=== PATIENT | male | born 1930 | race Caucasian/White ===

== ENCOUNTER 2022-03-01 12:44 | Emergency (ER) | payer MEDICARE, OTHER ==
[~2022-03-01] VITALS: Ht 167.6 cm; Wt 77.1 kg
[2022-03-01] MEDS ORDERED: IV NS 0.9% 500 ML BAG IV ONE (13:00)
--- NOTE | 2022-03-01 13:04 | NUR ---
PT TAKEN TO RADIOLOGY FOR CT
--- NOTE | 2022-03-01 13:20 | NUR ---
PT RETURNED FROM RADIOLOGY
--- NOTE | 2022-03-01 13:30 | NUR ---
IV LINE ESTABLISHED ON LAC #20, BLOOD DRAWN AND COLLECTED BY PHLEB AT BEDSIDE
--- NOTE | 2022-03-01 13:43 | NUR ---
TECH AT BEDSIDE FOR EKG
[2022-03-01 13:46] LABS: BASOPHILS % (AUTO) 0.5 % (0.0-2.0); EOSINOPHILS % (AUTO) 0.1 % (0.0-6.0); HEMATOCRIT 41 % (39-51); HEMOGLOBIN 13.8 g/dL (13.5-17.5); LYMPHOCYTES # (AUTO) 0.5 K/uL (0.8-4.8); LYMPHOCYTES % (AUTO) 8.7 % (20.0-44.0); MEAN CORPUSCULAR HGB CONC 33 g/dl (31.0-36.0); MEAN CORPUSCULAR VOLUME 87 fL (80-96); MONOCYTES # (AUTO) 0.8 K/uL (0.1-1.30); MONOCYTES % (AUTO) 12.4 % (2.0-12.0); NEUTROPHILS # (AUTO) 4.9 K/uL (1.8-8.9); NEUTROPHILS % (AUTO) 78.3 % (43.0-81.0); PLATELET COUNT (AUTO) 231 K/uL (150-450); RED BLOOD CELL COUNT(AUTO) 4.76 MIL/uL (4.5-6.0); WHITE BLOOD COUNT (AUTO) 6.3 K/uL (4.3-11.0)
[2022-03-01 14:33] LABS: CALCIUM, SERUM 8.9 mg/dL (8.5-10.1); CARBON DIOXIDE 30 mmol/L (21-32); CHLORIDE 103 mmol/L (98-107); CREATININE 1.4 mg/dL (0.6-1.3); GLUCOSE 136 mg/dL (74-106); POTASSIUM 4.2 mmol/L (3.5-5.1); SODIUM SERUM 139 mmol/L (136-145); UREA NITROGEN, BLOOD 16 mg/dL (7-18)
--- NOTE | 2022-03-01 15:36 | NUR ---
DALLIN RODGERS (CAREGIVER/POA) [phone]
[2022-03-01 15:40] LABS: BILIRUBIN,URINE NEGATIVE (NEGATIVE); COLOR,URINE YELLOW (YELLOW); LEUKOCYTE ESTERASE ,URINE NEGATIVE (NEGATIVE); NITRITE, URINE NEGATIVE (NEGATIVE); PROTEIN,URINE NEGATIVE (NEGATIVE); UGLUCOSE NEGATIVE (NEGATIVE); UROBILINOGEN,URINE 0.2 EU/dL (0.2)
[2022-03-01 15:55] LABS: BACTERIA,URINE None seen /HPF (None Seen); SQUAMOUS EPITHELIAL CELL,UR 0-2 /HPF (None Seen); WBC,URINE 0-2 /HPF (0-3)
--- NOTE | 2022-03-01 16:46 | NUR ---
[facility] CALLED FOR TRANSPORT ETA 60 MINS.
--- NOTE | 2022-03-01 16:50 | NUR ---
DALLIN, CAREGIVER, MADE AWARE OF DISCHARGE.
--- NOTE | 2022-03-01 18:47 | NUR ---
NEW ETA OF 10MINS PER [facility]
--- NOTE | 2022-03-01 19:38 | NUR ---
BEDSIDE REPORT GIVEN TO [facility] BLS GRADE SETTER
[2022-03-01 19:54] VITALS: BP 118/60
== END 2022-03-01 19:55 | disposition home or self-care (01) ==
LOC: ER 12:49
DX: R53.1 Weakness (principal); R41.82 Altered mental status, unspecified; E78.00 Pure hypercholesterolemia, unspecified; Z91.013 Allergy to seafood
CPT/HCPCS: 99285; 70450; 71045; 93005; 85025; 80048; 81001; 36415; 84484; J7030

== ENCOUNTER 2022-03-08 16:04 | Inpatient (IN) | payer MEDICARE, OTHER ==
[~2022-03-08] VITALS: Ht 170.2 cm; Wt 57.6 kg
--- NOTE | 2022-03-08 16:10 | NUR ---
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 On NRB 15 liters 02 sat 95%. Kept comfortable, connected to the monitor and pulse ox. Kept comfortable, will continue to monitor accordingly.
--- NOTE | 2022-03-08 16:15 | NUR ---
blood and urine collected and sent to lab.
[2022-03-08] MEDS ORDERED: LORAZEPAM INJ 2 MG/ML VIAL ONE (16:19)
[2022-03-08] MEDS ORDERED: IV NS 0.9% 500 ML BAG IV ONE (16:30)
[2022-03-08] MEDS ORDERED: ALBUTEROL FS 2.5 MG/3 ML VIAL.NEB CONTNEB ONE (16:30)
[2022-03-08] MEDS ORDERED: LORAZEPAM INJ 2 MG/ML VIAL IV ONE (16:30)
--- NOTE | 2022-03-08 16:30 | NUR ---
MOVE SHEET SUBMITTED.
--- NOTE | 2022-03-08 16:35 | NUR ---
covid swab collected and sent to lab.
[2022-03-08] MEDS ORDERED: ALBUTEROL FS 2.5 MG/3 ML VIAL.NEB ONE ×2 (16:43→16:45)
[2022-03-08 16:46] LABS: HEMATOCRIT 44 % (39-51); HEMOGLOBIN 14.5 g/dL (13.5-17.5); LYMPHOCYTES # (AUTO) 0.7 K/uL (0.8-4.8); LYMPHOCYTES % (AUTO) 5.3 % (20.0-44.0); MEAN CORPUSCULAR HGB CONC 33 g/dl (31.0-36.0); MEAN CORPUSCULAR VOLUME 88 fL (80-96); MONOCYTES # (AUTO) 0.6 K/uL (0.1-1.30); MONOCYTES % (AUTO) 3.9 % (2.0-12.0); NEUTROPHILS # (AUTO) 12.8 K/uL (1.8-8.9); NEUTROPHILS % (AUTO) 90.8 % (43.0-81.0); PLATELET COUNT (AUTO) 324 K/uL (150-450); RED BLOOD CELL COUNT(AUTO) 5.05 MIL/uL (4.5-6.0); WHITE BLOOD COUNT (AUTO) 14.1 K/uL (4.3-11.0)
[2022-03-08 16:52] LABS: BILIRUBIN,URINE 1+ (NEGATIVE); COLOR,URINE DARK YELLOW (YELLOW); LEUKOCYTE ESTERASE ,URINE NEGATIVE (NEGATIVE); NITRITE, URINE NEGATIVE (NEGATIVE); PH,URINE 5.5 (5.0-8.0); PROTEIN,URINE 2+ mg/dl (NEGATIVE); UGLUCOSE NEGATIVE (NEGATIVE)
[2022-03-08 17:05] LABS: BACTERIA,URINE 1+ /HPF (None Seen); SQUAMOUS EPITHELIAL CELL,UR Few /HPF (None Seen); WBC,URINE 0-2 /HPF (0-3)
[2022-03-08 17:06] LABS: COARSE GRANULAR CASTS,URINE Few /LPF (None Seen)
[2022-03-08 17:12] LABS: ALANINE AMINOTRANSFERASE 72 U/L (12-78); ALBUMIN 2.5 g/dL (3.4-5.0); ALKALINE PHOSPHATASE 73 U/L (46-116); ASPARTATE AMINOTRANSFERASE 52 U/L (15-37); BILIRUBIN,DIRECT 0.5 mg/dL (0.0-0.2); BILIRUBIN,TOTAL 1.3 mg/dL (0.2-1.0); CALCIUM, SERUM 9.5 mg/dL (8.5-10.1); CARBON DIOXIDE 26 mmol/L (21-32); CHLORIDE 117 mmol/L (98-107); GLUCOSE 206 mg/dL (74-106); POTASSIUM 3.7 mmol/L (3.5-5.1); SODIUM SERUM 155 mmol/L (136-145); TOTAL PROTEIN, SERUM 7.7 g/dL (6.4-8.2); UREA NITROGEN, BLOOD 58 mg/dL (7-18)
[2022-03-08] MEDS ORDERED: VANCOMYCIN 1 GM in IV D5W 250 ML IV ONE (17:30)
[2022-03-08] MEDS ORDERED: PIPERACILLIN /TAZOBACTAM 3.375 G in IV D5W 50 ML IV ONE (17:30)
--- NOTE | 2022-03-08 17:39 | NUR ---
LAC ACID 7.3, DR GROSS MADE AWARE
[2022-03-08] MEDS ORDERED: IV NS 0.9% 500 ML IV ONE (19:30)
[2022-03-08 20:26] LABS: ABG PCO2 28.6 mmHg (35.0-45.0); ABG PH 7.455 (7.350-7.450); ABG PO2 52.4 mmHg (75.0-100.0); COHb 0.3 % (0.5-1.5); MetHb 0.3 % (0.0-1.5); SITE, ABG Right Radial; VENT MODE, BG NRB 100%
--- NOTE | 2022-03-08 20:52 | NUR ---
icu 255
[2022-03-08] MEDS ORDERED: ALBUTEROL FS 2.5 MG/0.5 ML VIAL.NEB NEB PRN (21:00)
[2022-03-08] MEDS ORDERED: REMDESIVIR (CHARGED) 200 MG, *LOADING DOSE 1 EA in IV NS 0.9% 210 ML IV ONE (21:00)
[2022-03-08] MEDS ORDERED: MORPHINE SULFATE INJ 2 MG/ML DISP.SYRIN IV PRN (21:00)
[2022-03-08] MEDS ORDERED: ONDANSETRON HCL/PF 4 MG/2 ML VIAL IVP PRN (21:00)
[2022-03-08] MEDS ORDERED: HEPARIN SODIUM, PORCINE 5000 UNITS/1 ML VIAL SQ SCH (21:00)
[2022-03-08] MEDS ORDERED: Z GUARD REMEDY 4 OZ OINT TP PRN (21:00)
[2022-03-08] MEDS ORDERED: DEXAMETHASONE SOD PHOSPHATE 10 MG/ML VIAL IV ONE (21:00)
[2022-03-08] MEDS ORDERED: DEXTROSE 50%-WATER 50 ML DISP.SYRIN IV PRN (21:00)
[2022-03-08] MEDS ORDERED: INSULIN REGULAR, HUMAN 100 UNIT/ML 3 ML VIAL SQ PRN (21:00)
[2022-03-08] MEDS ORDERED: IV D5/0.45 NACL 1,000 ML IV SCH (21:00)
[2022-03-08] MEDS ORDERED: ACETAMINOPHEN 325 MG TABLET PO PRN (21:00)
--- NOTE | 2022-03-08 21:06 | NUR ---
caregiver Iv [phone]
--- NOTE | 2022-03-08 21:15 | NUR ---
REPORT GIVEN TO JIGGER ARTISAN
--- NOTE | 2022-03-08 21:25 | NUR ---
PATIENT TRANSFERRED UNDERF ACLS
[2022-03-08] MEDS ORDERED: EPINEPHRINE (1:1000) 1 MG/ML AMPUL ONE (21:31)
[2022-03-08 22:00] VITALS: BP 128/65
[2022-03-08] MEDS ORDERED: BLOOD SUGAR DIAGNOSTIC 1 EACH STRIP IN SCH (22:00)
[2022-03-08] MEDS ORDERED: IV LR 1000 ML 1,000 ML IV ONE (22:00)
[2022-03-08] MEDS ORDERED: PROPOFOL 100 ML IV PRN (22:00)
[2022-03-08] MEDS ORDERED: CEFEPIME 2 GM in IV D5W 100 ML IV ONE (22:00)
--- NOTE | 2022-03-08 22:12 | NUR ---
RT NOTE Pt rec'd on HFNC @ 40LPM 100% + NRB mask. Pt showed RR > 40 breaths per minute and O2 saturation of 75%. Pt orally intubated via ETT sz #7.5 secured at 22CM at the lipline per MD orders. Clear bilateral breath sounds heard on auscultation. Color changed noted via CO2 Detector. Pt placed on mech vent on Noted settings per MD orders. Chest Xray confirmed on noted placement. ABG to be taken within 1 hr. Addendum: 03/08/22 at 2220 by TIN BARRIENTOS RT Amended: Links added.
[2022-03-08] MEDS ORDERED: EPINEPHRINE (1:1000) 1 MG/ML AMPUL MC ONE (22:30)
[2022-03-08] MEDS ORDERED: PHENYLEPHRINE 50 MG in IV NS 0.9% 245 ML IV PRN (22:30)
[2022-03-08] MEDS ORDERED: CEFEPIME 1 GM VIAL ONE (22:43)
[2022-03-08] MEDS ORDERED: INSULIN REGULAR, HUMAN 100 UNIT/ML 3 ML VIAL ONE (22:43)
[2022-03-08 22:45] VITALS: BP 122/44
[2022-03-08 23:00] VITALS: BP 151/55
[2022-03-08 23:33] LABS: ABG BASE EXCESS -8.7 mmol/L; ABG OXYGEN SATURATION 89.5 % (92.0-98.5); ABG PCO2 43.4 mmHg (35.0-45.0); ABG PH 7.244 (7.350-7.450); ABG PO2 69.5 mmHg (75.0-100.0); AaDO2 600.1 mmHg; COHb 0.1 % (0.5-1.5); MetHb 0.4 % (0.0-1.5); O2Hb 89.1 % (94.0-97.0); PEEP,BG 14 cm H2O
--- NOTE | 2022-03-08 23:33 | NUR ---
POST INTUBATION ABG DONE RN NOTIFIED
[2022-03-08 23:42] VITALS: BP 99/52
[2022-03-09] VITALS: BP 102/58
[2022-03-09] MEDS ORDERED: Sodium Bicarbonate 100 MEQ in IV D5/0.45 NACL 1,000 ML IV PRN ×2
[2022-03-09] MEDS ORDERED: IV NS 0.9% 250 ML IV PRN
[2022-03-09] MEDS ORDERED: PHENYLEPHRINE 10 MG/ML VIAL ONE (00:03)
[2022-03-09 00:08] VITALS: BP 52/25
[2022-03-09] MEDS ORDERED: IPRATROPIUM/ALBUTEROL INHALER IH SCH (01:30)
[2022-03-09] MEDS ORDERED: EPINEPHRINE (1:10,000) SYRINGE 1 MG/10 ML DISP.SYRIN IVP ONE ×2 (02:07)
[2022-03-09] MEDS ORDERED: SUCCINYLCHOLINE CHLORIDE 20 MG/ML VIAL IV ONE (02:07)
[2022-03-09] MEDS ORDERED: CALCIUM CHLORIDE 1,000 MG/10 ML DISP.SYRIN IV ONE (02:07)
[2022-03-09] MEDS ORDERED: PROPOFOL 1,000 MG/100 ML BOTTLE IV ONE (02:07)
[2022-03-09] MEDS ORDERED: ETOMIDATE 2 MG/ML VIAL IV ONE (02:07)
[2022-03-09] MEDS ORDERED: SODIUM BICARBONATE SYR 50 MEQ/50 ML DISP.SYRIN IV ONE ×2 (02:07)
[2022-03-09] MEDS ORDERED: DEXAMETHASONE SOD PHOSPHATE 4 MG/ML VIAL IV SCH (09:00)
[2022-03-09] MEDS ORDERED: REMDESIVIR (CHARGED) 100 MG in IV NS 0.9% 230 ML IV SCH (09:00)
[2022-03-09] MEDS ORDERED: POLYETHYLENE GLYCOL 3350 17 GM POWD.PACK PO SCH (09:00)
[2022-03-09] MEDS ORDERED: DOCUSATE SODIUM LIQ 100 MG/10 ML UDC PO SCH (09:00)
--- NOTE | 2022-03-10 08:00 | NUR ---
ADMITTED THIS 89 Y/O MALE FROM ER ON 03/08/22 AT 2000 BY KIERAN, ACCOMPANIED BY ER STAFF PER ACLS PROTOCOL.DX. COVID, PNEUMONIA.ROUTINE ICU ADMISSION ASSESSMENT INITIATED.ON ASSESSMENT, PT. NOTED TO BE OBTUNDED, TACHYPNEIC, USING ACCESSORY MUSCLES, RR ON THE 40'S, SATS.92%,NURSING CONSUMER STUDIES PROFESSOR Frankie MIXON MADE AWARE OF PT. CONDITION, WHO AT THE TIME WAS IN ICU. DR. KO WAS NOTIFIED IMMEDIATELY OF PT. STATUS AND NOTIFIED ER MD GROSS TO ASSESS PT. BHARTI FOR POSSIBLE INTUBATION. Addendum: 03/10/22 at 0819 by ROSA M GALLO RN ACTUAL PT. SATURATION ON ADMISSION WAS ON THE 60'S AND 70'S W/ O2 SUPPORT OF 15L NRB.
--- NOTE | 2022-03-10 08:07 | NUR ---
RN/ICU-ON THE SAME DAY 03/08/22 AT 2014, DR. GROSS CAME TO ASSESS PT. AND DECIDED TO INTUBATE PT. AMNA HUNTER CALLED PHONE NO. LISTED ON PT. FACE SHEET TWICE(TEL. NO.[phone]) TO DETERMINE PT. CODE STATUS AND ANY DECISION MAKING REGARDING INTUBATION BUT TO NO AVAIL, MESSAGE STATED THE PHONE IS NO LONGER IN SERVICE, AND HAS BEEN DISCONNECTED.
--- NOTE | 2022-03-10 08:20 | NUR ---
RN/ICU ON 03/08/22 AT 2039, AFTER NOT BEING UNABLE TO GET HOLD OF FAMILY, DR. GROSS DECIDED TO INTUBATE PT. PER PROTOCOL, AND HOOKED UP TO VENT. USING DROPLET/AIRBORNE PRECAUTIONS ASSISTED BY 2 RT'S PLUS PRIMARY RN Frankie HUNTER AND YUE GALLO. WITH NO PROBLEM OR COMPLICATION.PT. REMAINS A FULL CODE.
--- NOTE | 2022-03-10 08:24 | NUR ---
RN/ICU-ON 03/09/22 AT 0112, PT. REMAINS ON THE VENT, SEDATED ON DIPRIVAN DRIP AT 5MCG/KG/MIN PER PROTOCOL. EKG NOTED ASYSTOLE X2 LEADS, PULSELESS, CODE BLUE ACTIVATED, CONSISTENTLY PERFORMING ACLS. REFER TO CODE BLUE SHEET FOR DETAILS.
--- NOTE | 2022-03-10 08:25 | NUR ---
RN/ICU- ON 03/09/22 AT 0120 PT. WAS SUCCESSFULLY REVIVED W/ ROSC, BUT REMAINS CRITICALLY ILL. DR. KO AWARE WITH ORDERS NOTED. WILL CONTINUE TO MONITOR CLOSELY PER PROTOCOL AND REFER NEEDED.
--- NOTE | 2022-03-10 08:28 | NUR ---
RN/ICU-ON 03/09/22 AT 0158, PT. REMAINS CRITICALLY ILL, ON THE VENT PER ETT, SEDATED ON DIPRIVAN DRIP AT 5 MCG/KG/MIN, NOTED PULSELESS, EKG NOTED ASYSTOLE, CODE BLUE ACTIVATED, ACLS PROTOCOL INITIATED.
--- NOTE | 2022-03-10 08:30 | NUR ---
RN/ICU- ON 03/09/[address] DIETRICH NOTIFIED PT. .
--- NOTE | 2022-03-10 08:35 | NUR ---
RN/ICU-ON 03/09/22 AT 0240, INFORMATION SYSTEMS ADMINISTRATOR WAS NOTIFIED AND RELEASED PT. BODY.
--- NOTE | 2022-03-10 08:36 | NUR ---
RN/ICU-ON 03/09/22 AT 0243, [facility] WAS NOTIFIED OF PT. , DECLINED PT. ORGAN DONOR.
--- NOTE | 2022-03-10 08:38 | NUR ---
RN/ICU-ON 03/09/22 AT 0330 POST MORTEM CARE WAS PERFORMED AND [facility].
--- NOTE | 2022-03-10 08:39 | NUR ---
RN/ICU- ON 03/09/22 AT 0400 NURSING INFORMATION SYSTEMS ANALYST Frankie MIXON WAS MADE AWARE THAT PT. HAS NO FAMILY AND THAT THE SAME TEL. NO IN THE PT. FACE SHEET WAS CALLED BUT TO NO AVAIL.
== END 2022-03-09 02:08 | DRG 871 ==
LOC: ER 16:06 → ICU 21:13
PROVIDERS: ADMIT Internal Medicine; ATTEND Internal Medicine
PROC: 5A1935Z Respiratory Ventilation, Less than 24 Consecutive Hours (ICD-10-PCS; principal; 2022-03-08)
PROC: 0BH17EZ Insertion of Endotracheal Airway into Trachea, Via Natural or Artificial Opening (ICD-10-PCS; 2022-03-08)
PROC: 3E0333Z Introduction of Anti-inflammatory into Peripheral Vein, Percutaneous Approach (ICD-10-PCS; 2022-03-08)
PROC: XW033E5 Introduction of Remdesivir Anti-infective into Peripheral Vein, Percutaneous Approach, New Technology Group 5 (ICD-10-PCS; 2022-03-08)
PROC: 5A12012 Performance of Cardiac Output, Single, Manual (ICD-10-PCS; 2022-03-09)
DX: A41.89 Other specified sepsis (principal); J12.82 Pneumonia due to coronavirus disease 2019; U07.1 COVID-19; R65.21 Severe sepsis with septic shock; J96.01 Acute respiratory failure with hypoxia; N17.0 Acute kidney failure with tubular necrosis; E44.0 Moderate protein-calorie malnutrition; E87.0 Hyperosmolality and hypernatremia; E87.20 Acidosis, unspecified; G93.40 Encephalopathy, unspecified; R17 Unspecified jaundice; E78.00 Pure hypercholesterolemia, unspecified; E86.0 Dehydration; E88.09 Other disorders of plasma-protein metabolism, not elsewhere classified; F03.90 Unspecified dementia, unspecified severity, without behavioral disturbance, psychotic disturbance, mood disturbance, and anxiety; I10 Essential (primary) hypertension; I25.10 Atherosclerotic heart disease of native coronary artery without angina pectoris; I25.2 Old myocardial infarction
CPT/HCPCS: 36415; 36600; 71045-TC; 80048-TC; 80076-TC; 81001; 82803-TC; 82962-TC; 83605-TC; 83880; 84484-TC; 85025-TC; 85730-TC; 87040-TC; 87081-TC; 87086-TC; 92950-TC; 94002-TC; C9803; G0378; J0171; J0330; J0692; J1100; J1644; J1815; J2060; J2370; J2543; J3370; J3490; J7040; J7050; J7060; J7120